=== PATIENT | female | born 1970 | race Caucasian/White ===

== ENCOUNTER 2024-11-08 10:26 | Emergency (ER) | payer BC ==
[~2024-11-08] VITALS: Ht 162.6 cm; Wt 66.7 kg
[2024-11-08 10:30] VITALS: O2SAT 98
[2024-11-08 12:14] VITALS: BP 140/85; PULSE 82; RESP 16; TEMP 36.7; O2SAT 98
== END 2024-11-08 12:15 | disposition home or self-care (01) ==
LOC: ER 10:26
DX: S06.0XAA Concussion with loss of consciousness status unknown, initial encounter (principal); D32.9 Benign neoplasm of meninges, unspecified; Z88.7 Allergy status to serum and vaccine; Z98.890 Other specified postprocedural states; W10.9XXA Fall (on) (from) unspecified stairs and steps, initial encounter; Y93.89 Activity, other specified; Y92.89 Other specified places as the place of occurrence of the external cause; Y99.8 Other external cause status
CPT/HCPCS: 99284

== ENCOUNTER → 2025-03-06 | Outpatient (CLI) | payer BC | END | disposition home or self-care (01) | LOC: MRI 07:18 | DX: S72.431A Displaced fracture of medial condyle of right femur, initial encounter for closed fracture (principal); S83.241A Other tear of medial meniscus, current injury, right knee, initial encounter; S83.281A Other tear of lateral meniscus, current injury, right knee, initial encounter; S83.511A Sprain of anterior cruciate ligament of right knee, initial encounter; S83.521A Sprain of posterior cruciate ligament of right knee, initial encounter; M17.11 Unilateral primary osteoarthritis, right knee; M25.561 Pain in right knee; M22.41 Chondromalacia patellae, right knee; M25.461 Effusion, right knee; M23.8X1 Other internal derangements of right knee; M25.861 Other specified joint disorders, right knee; M76.9 Unspecified enthesopathy, lower limb, excluding foot; X58.XXXA Exposure to other specified factors, initial encounter; Y93.89 Activity, other specified; Y92.89 Other specified places as the place of occurrence of the external cause; Y99.8 Other external cause status | CPT/HCPCS: 73721 ==

== ENCOUNTER → 2025-03-06 | Outpatient (CLI) | payer BC ==
[2025-03-06 09:43] LABS: TRIGLYCERIDE 126.0 mg/dL (0-150)
[2025-03-06 09:44] LABS: LDL CHOLESTEROL 73.0 mg/dL (5-100)
== END | disposition home or self-care (01) ==
LOC: LAB 09:10
DX: Z01.89 Encounter for other specified special examinations (principal)
CPT/HCPCS: 36415; 80061